=== PATIENT | male | born 1985 | race Caucasian/White ===

== ENCOUNTER 2024-02-05 22:55 | Emergency (ER) | payer MEDICAID ==
[~2024-02-05] VITALS: Ht 172.7 cm; Wt 90.7 kg
[2024-02-05 23:25] VITALS: BP 160/73; TEMP 98.1; O2SAT 98
[2024-02-05] MEDS ORDERED: ONDANSETRON HCL/PF 4 MG/2 ML VIAL ONE (23:27)
[2024-02-05] MEDS ORDERED: KETOROLAC TROMETHAMINE INJ 30 MG/ML VIAL ONE (23:27)
[2024-02-05] MEDS: IV NS 0.9% 1,000 ML BAG IV ONE (23:35)
[2024-02-05] MEDS: ONDANSETRON HCL/PF 4 MG/2 ML VIAL IVP ONE (23:36)
[2024-02-05] MEDS: KETOROLAC TROMETHAMINE 15 MG/ML VIAL IV ONE (23:36)
[2024-02-05 23:42] LABS: BASOPHILS # (AUTO) 0.1 K/uL (0.0-0.2); BASOPHILS % (AUTO) 0.5 % (0.0-2.0); EOSINOPHILS # (AUTO) 0.2 K/uL (0.0-0.7); EOSINOPHILS % (AUTO) 1.7 % (0.0-6.0); HEMATOCRIT 41 % (39-51); HEMOGLOBIN 14.3 g/dL (13.5-17.5); LYMPHOCYTES # (AUTO) 2.8 K/uL (0.8-4.8); LYMPHOCYTES % (AUTO) 24.4 % (20.0-44.0); MEAN CORPUSCULAR HEMOGLOBIN 31 PG (26.0-33.0); MEAN CORPUSCULAR HGB CONC 35 g/dl (31.0-36.0); MEAN CORPUSCULAR VOLUME 89 fL (80-96); MONOCYTES # (AUTO) 0.8 K/uL (0.1-1.30); MONOCYTES % (AUTO) 7.2 % (2.0-12.0); NEUTROPHILS # (AUTO) 7.5 K/uL (1.8-8.9); NEUTROPHILS % (AUTO) 66.2 % (43.0-81.0); PLATELET COUNT (AUTO) 209 K/uL (150-450); RED BLOOD CELL COUNT(AUTO) 4.63 MIL/uL (4.5-6.0); RED CELL DISTRIBUTION WIDTH 13.1 % (11.5-15.0); WHITE BLOOD COUNT (AUTO) 11.4 K/uL (4.3-11.0)
[2024-02-05 23:53] LABS: APPEARANCE,URINE CLEAR (CLEAR); BILIRUBIN,URINE NEGATIVE (NEGATIVE); BLOOD, URINE 2+ Ery/uL (NEGATIVE); COLOR,URINE YELLOW (YELLOW); KETONES,URINE NEGATIVE (NEGATIVE); LEUKOCYTE ESTERASE ,URINE NEGATIVE (NEGATIVE); NITRITE, URINE NEGATIVE (NEGATIVE); PH,URINE 7.5 (5.0-8.0); PROTEIN,URINE NEGATIVE (NEGATIVE); UGLUCOSE NEGATIVE (NEGATIVE)
[2024-02-06 00:06] LABS: ALBUMIN 4.1 g/dL (3.4-5.0); BILIRUBIN,DIRECT 0.2 mg/dL (0.0-0.2); BILIRUBIN,TOTAL 0.6 mg/dL (0.2-1.0); CALCIUM, SERUM 9.1 mg/dL (8.5-10.1); POTASSIUM 3.5 mmol/L (3.5-5.1); TOTAL PROTEIN, SERUM 7.4 g/dL (6.4-8.2)
[2024-02-06 00:19] LABS: ADD URINE CULTURE NO; BACTERIA,URINE 1+ /HPF (None Seen); SQUAMOUS EPITHELIAL CELL,UR None Seen /HPF (None Seen); URINE AMORPHOUS URATE Moderate /HPF (None Seen); WBC,URINE 0-2 /HPF (0-3)
[2024-02-06] MEDS ORDERED: KETO10TA2 PO (02:07)
[2024-02-06] MEDS ORDERED: ONDA4TAB11 PO (02:07)
[2024-02-06] MEDS ORDERED: TAMS-12 PO (02:07)
== END 2024-02-06 02:23 | disposition home or self-care (01) ==
LOC: ER 23:08
DX: N13.2 Hydronephrosis with renal and ureteral calculous obstruction (principal); Z79.899 Other long term (current) drug therapy
CPT/HCPCS: 99285; 74176; 96374; 96361; 96375; 85025; 80048; 83690; 80076; 81001; 36415; J1885; J2405; J7030

== ENCOUNTER 2024-02-17 22:04 | Emergency (ER) | payer MEDICAID ==
[~2024-02-17] VITALS: Ht 172.7 cm; Wt 83.9 kg
[~2024-02-17 22:04] MED LIST: KETO10TA2 PO; ONDA4TAB11 PO; TAMS-12 PO
[2024-02-17 22:36] VITALS: BP 128/87; TEMP 98.4
[2024-02-17] MEDS ORDERED: TAMS-12 PO (23:00)
[2024-02-17] MEDS ORDERED: NAPR-1009 PO (23:00)
[2024-02-17] MEDS ORDERED: KETOROLAC TROMETHAMINE INJ 30 MG/ML VIAL ONE (23:22)
[2024-02-17] MEDS: KETOROLAC TROMETHAMINE INJ 30 MG/ML VIAL IM ONE (23:28)
[2024-02-17 23:30] VITALS: O2SAT 99
== END 2024-02-17 23:30 | disposition home or self-care (01) ==
LOC: ER 22:08
DX: N20.2 Calculus of kidney with calculus of ureter (principal)
CPT/HCPCS: J1885

== ENCOUNTER 2024-03-11 14:50 | Emergency (ER) | payer MEDICAID ==
[~2024-03-11] VITALS: Ht 177.8 cm; Wt 83.9 kg
[~2024-03-11 14:50] MED LIST changes: +NAPR-1009 PO
[2024-03-11] MEDS: IV NS 0.9% 1,000 ML BAG IV ONE (16:35)
[2024-03-11] MEDS ORDERED: ACETAMINOPHEN 325 MG TABLET ONE (17:33)
[2024-03-11] MEDS ORDERED: BENZONATATE 100 MG CAPSULE PO ONE (17:33)
[2024-03-11] MEDS: ACETAMINOPHEN 325 MG TABLET PO ONE (17:38)
[2024-03-11] MEDS: BENZONATATE 100 MG CAPSULE PO PRN (17:38)
[2024-03-11 17:53] LABS: APPEARANCE,URINE CLEAR (CLEAR); BILIRUBIN,URINE SMALL (NEGATIVE); BLOOD, URINE TRACE Ery/uL (NEGATIVE); COLOR,URINE YELLOW (YELLOW); KETONES,URINE 15 mg/dL (NEGATIVE); NITRITE, URINE NEGATIVE (NEGATIVE); PH,URINE 5.5 (5.0-8.0); PROTEIN,URINE NEGATIVE (NEGATIVE); UGLUCOSE NEGATIVE (NEGATIVE); UROBILINOGEN,URINE 0.2 EU/dL (0.2)
[2024-03-11 17:54] LABS: ADD URINE CULTURE NO; BACTERIA,URINE Rare /HPF (None Seen); LEUKOCYTE ESTERASE ,URINE NEGATIVE (NEGATIVE); SQUAMOUS EPITHELIAL CELL,UR Rare /HPF (None Seen); WBC,URINE 0-2 /HPF (0-3)
[2024-03-11 19:56] LABS: BASOPHILS % (AUTO) 0.3 % (0.0-2.0); EOSINOPHILS % (AUTO) 0.1 % (0.0-6.0); HEMATOCRIT 38 % (39-51); HEMOGLOBIN 13.4 g/dL (13.5-17.5); LYMPHOCYTES # (AUTO) 1.6 K/uL (0.8-4.8); LYMPHOCYTES % (AUTO) 16.3 % (20.0-44.0); MEAN CORPUSCULAR HEMOGLOBIN 31 PG (26.0-33.0); MEAN CORPUSCULAR HGB CONC 35 g/dl (31.0-36.0); MEAN CORPUSCULAR VOLUME 88 fL (80-96); MONOCYTES # (AUTO) 0.9 K/uL (0.1-1.30); MONOCYTES % (AUTO) 8.8 % (2.0-12.0); NEUTROPHILS # (AUTO) 7.5 K/uL (1.8-8.9); NEUTROPHILS % (AUTO) 74.5 % (43.0-81.0); PLATELET COUNT (AUTO) 147 K/uL (150-450); RED BLOOD CELL COUNT(AUTO) 4.36 MIL/uL (4.5-6.0); RED CELL DISTRIBUTION WIDTH 12.6 % (11.5-15.0); WHITE BLOOD COUNT (AUTO) 10.1 K/uL (4.3-11.0)
[2024-03-11] MEDS ORDERED: BENZ-13 PO (20:02)
[2024-03-11] MEDS ORDERED: ONDA4TAB5 PO (20:02)
[2024-03-11] MEDS ORDERED: FLUT16SP16 BNOSTRILS (20:02)
[2024-03-11] MEDS ORDERED: ACET325C7 PO (20:02)
[2024-03-11] MEDS ORDERED: AZIT250T PO (20:08)
[2024-03-11] MEDS ORDERED: AMOX500T2 PO (20:08)
[2024-03-11 20:25] LABS: LACTIC ACID 0.7 mmol/L (0.4-2.0)
[2024-03-11 20:30] LABS: CALCIUM, SERUM 8.3 mg/dL (8.5-10.1); CREATININE 0.9 mg/dL (0.6-1.3); POTASSIUM 3.4 mmol/L (3.5-5.1)
[2024-03-11 20:34] LABS: ALBUMIN 3.5 g/dL (3.4-5.0); TOTAL PROTEIN, SERUM 6.8 g/dL (6.4-8.2)
[2024-03-11 21:35] VITALS: BP 120/75; TEMP 98.4; O2SAT 97
== END 2024-03-11 21:36 | disposition home or self-care (01) ==
LOC: ER 14:53
DX: J18.9 Pneumonia, unspecified organism (principal); R11.2 Nausea with vomiting, unspecified; R50.9 Fever, unspecified; Z87.442 Personal history of urinary calculi; Z20.822 Contact with and (suspected) exposure to COVID-19
CPT/HCPCS: 36415; 71045-TC; 80053-TC; 81001; 83605-TC; 85025-TC; J7030